=== PATIENT | male | born 1990 | race Caucasian/White ===

== ENCOUNTER 2019-10-19 12:30 | Emergency (ER) | payer BC ==
[~2019-10-19] VITALS: Ht 188 cm; Wt 93.0 kg
--- NOTE | 2019-10-19 14:01 | NUR ---
Jodie brand in ED - 10/19/19 at 1432 by KATRIN Patient discharged to home in stable conditon. Written and verbal after care instructions given. Patient verbalizes understanding of instructions.pt walks in steady gait.
[2019-10-19 14:02] VITALS: BP 137/83
--- NOTE | 2019-10-19 14:32 | NUR ---
Patient discharged to home in stable conditon. Written and verbal after care instructions given. Patient verbalizes understanding of instructions.
== END 2019-10-19 14:02 | disposition home or self-care (01) ==
LOC: ER 12:30
DX: M54.9 Dorsalgia, unspecified (principal); M25.512 Pain in left shoulder; M54.2 Cervicalgia; V53.5XXA Driver of pick-up truck or van injured in collision with car, pick-up truck or van in traffic accident, initial encounter; Y93.89 Activity, other specified; Y92.89 Other specified places as the place of occurrence of the external cause; Y99.8 Other external cause status
CPT/HCPCS: 72100; 73030; A4663